=== PATIENT | male | born 1965 | race Caucasian/White ===

== ENCOUNTER 2022-11-04 12:33 | Emergency (ER) | payer OTHER, BC ==
[2022-11-04] MEDS ORDERED: Fentanyl 100 MCG/2 ML VIAL ONE (12:50)
[2022-11-04] MEDS ORDERED: HYDROcodone/Acetaminophen 5/325 mg Tablet ONE (13:54)
== END 2022-11-04 14:10 | disposition home or self-care (01) ==
LOC: NAV ERS 12:33
DX: S22.42XA Multiple fractures of ribs, left side, initial encounter for closed fracture (principal); M25.512 Pain in left shoulder; M54.2 Cervicalgia; I25.10 Atherosclerotic heart disease of native coronary artery without angina pectoris; Z79.82 Long term (current) use of aspirin; Z79.899 Other long term (current) drug therapy; V80.010A Animal-rider injured by fall from or being thrown from horse in noncollision accident, initial encounter; Y93.52 Activity, horseback riding
CPT/HCPCS: 71250; 72125; 96374; J3010